=== PATIENT | male | born 1985 | race Caucasian/White ===

== ENCOUNTER 2016-05-20 08:02 | Emergency (ER) | payer BC, OTHER ==
[2016-05-20 08:15] VITALS: BP 185/125
--- NOTE | 2016-05-20 08:47 | UC ---
Mercedez Booker Janilya, scribed for [facility] MD on 05/20/16 at 0830 . Throat Pain/Nasal Oskar HPI - HPI Summary HPI Summary: Nurse's note: Sore throat, sinus pressure for about a week, states worse at night. BP 185/125; pt states he did not take lisinopril yet this AM; is under a lot of stress, his brother this week. note: Billy Peña's vital signs are stable. Pt has elevated blood pressure 185/125. He needs to take his Lisinopril. 10/23 discomfort. Pulse is 99. Everyday smoker. PMHx significant HTN, DM. Pt is on Amlodipine and Metform. Chart review shows number of visits for sore throat. Pt was treated in March for sinusitis. Note is made of an ER visit on 04/01/2016. Pt had elevated BP, but refused to stay in hospital even though he had chest discomfort. HPI: A 31 y/o male came in to [facility] presenting w/ a gradual onset of constant sore throat for approximately 3 days. It hurts to swallow. Pt reports sinus pain. Pt states his ears are plugged. Pt denies SOB, n/v/d. Pt is allergic to Amoxicillin. - History of Current Complaint Chief Complaint: UC Stated Complaint: SORE THROAT SINUS ISSUE Hx Obtained From: Patient Onset/Duration: Gradual Onset, Lasting Days, Still Present Severity: Moderate - Allergies/Home Medications Allergies/Adverse Reactions: Allergies Allergy/AdvReac Type Severity Reaction Status Date / Time Amoxicillin [From Augmentin] Allergy Intermediate YEAST Verified 05/20/16 08:08 INFECTION Clavulanic Acid Allergy Intermediate YEAST Verified 05/20/16 08:08 [From Augmentin] INFECTION PMH/Surg Hx/FS Hx/Imm Hx Previously Healthy: Yes Endocrine History Of: Reports: Diabetes Denies: Thyroid Disease Cardiovascular History Of: Reports: Hypertension Denies: Cardiac Disorders Respiratory History Of: Denies: COPD, Asthma GI/ History Of: Denies: Ulcer - Surgical History Surgical History: None - Family History Known Family History: Positive: Cardiac Disease - CHF, multiple [place]'s - father ( age 73), Hypertension - father, mother, Diabetes - father, Other - positive [facility] for URI - Social History Occupation: Employed Full-time - [place] Alcohol Use: Rare Substance Use Type: None Smoking Status (MU): Heavy Every Day Tobacco Smoker Type: Cigarettes Amount Used/How Often: 1/2 ppd Length of Time of Smoking/Using Tobacco: 18 years Have You Smoked in the Last Year: Yes Household Exposure Type: Cigarettes - Immunization History Most Recent Influenza Vaccination: none Review of Systems Constitutional: Negative Skin: Negative Eyes: Negative ENT: Sore Throat, Other - Sinus pain, ears plugged Respiratory: Negative Cardiovascular: Negative Gastrointestinal: Negative Genitourinary: Negative Motor: Negative Neurovascular: Negative Musculoskeletal: Negative Neurological: Negative Psychological: Negative All Other Systems Reviewed And Are Negative: Yes Physical Exam Triage Information Reviewed: Yes Appearance: Well-Appearing, No Pain Distress, Well-Nourished Vital Signs: Initial Vital Signs Temp 97.6 F 05/20/16 08:09 Pulse 80 05/20/16 08:09 Resp 16 05/20/16 08:09 BP 185/125 05/20/16 08:09 Pulse Ox 99 05/20/16 08:09 Vital Signs Reviewed: Yes Eyes: Positive: Conjunctiva Clear ENT: Positive: Hearing grossly normal, Pharynx normal, TMs normal, Other: - TENDER TO PALPATION OVER BOTH MAXILLARY SINUSES. Negative: Muffled/hoarse voice Neck: Positive: Supple, Nontender Respiratory: Positive: Chest non-tender, Lungs clear, Normal breath sounds, No respiratory distress Cardiovascular: Positive: RRR, No Murmur Abdomen Description: Positive: Nontender, No Organomegaly, Soft Bowel Sounds: Positive: Present Musculoskeletal: Positive: Strength Intact Neurological: Positive: Alert Psychological: Positive: Age Appropriate Behavior Skin: Negative: rashes Throat Pain/Nasal Course/Dx - Course Course Of Treatment: Considered sinusitis vs URI. Diagnosis is maxillar sinusitis, bilateral. - Differential Dx/Diagnosis Differential Diagnosis/HQI/PQRI: Sinusitis, URI Provider Diagnoses: Maxillar sinusitis, bilateral Discharge - Discharge Plan Condition: Stable Disposition: HOME Prescriptions: Sulfamethox/Trimethoprim DS* [Bactrim DS 800/160 TAB*] 1 tab PO BID #20 tab Patient Education Materials: Sinusitis (ED) Referrals: Anny Calderón NP [Primary Care Provider] - Additional Instructions: WE DISCUSSED: You have sinusitis. begin Bactrim antibiotic for 10 days; one pill, twice a day. Smoke as little as possible. See instructions below to help with sinus discomfort. COUGH, CONGESTION of CHEST, SINUSES OR EARS: The most important goal is to liquefy all the phlegm and get it out of your head and chest. Any illness causing cough, congestion, sore throat or sinus discomfort can be helped by doing the following: STAND UNDER SHOWER STREAM TO LOOSEN SECRETIONS. STAY AWAY FROM ANY SMOKE OR IRRITANTS. WHAT ELSE CAN HELP RELIEVE YOUR SYMPTOMS: GENERAL TYPES OF MEDICINE THAT MAY HELP DECONGESTANTS: helps relieve stuffiness and clears sinuses. Pseudoephedrine ( Sudafed or generic) is effective but you need to ask the pharmacist for it because it may be kept behind the counter. ANTIHISTAMINES: are NOT helpful in many colds and flus because they can worsen sore throat, dry eyes and mouth and cause drowsiness. Examples are diphenhydramine, doxylamine and chlorpheniramine. They can help dry you out if you are having profuse, clear drainage from the nose. EXPECTORANTS: helps thin mucous in the nose and chest, making it easier to clear the fluid out. Expectorants are in most combination cough/cold remedies and should be taken with plenty of water. Guaifenesin is the most common expectorant and it comes in pill or liquid form. Mucinex is an extended release form of guaifenesin. COUGH SUPPRESANT: reduces the body's cough reflex. Dextromethorphan is in over the counter products, but sometimes narcotics such as codeine or hydrocodone are used to suppress cough. SPECIFIC MEDICATIONS: The most important goal is to liquefy all the phlegm and get it out of your head and chest: The following medicines (in prescription form or you can buy them without prescription) may help: To help with cough: DEXTROMETHORPHAN (Vicks, Robitussin, Nyquil and other brands) To help break up phlegm: GUAIFENESIN (Mucinex, Robitussin, other brands) To help clear congestion: PSEUDOEPHEDRINE (Sudafed, Dimetapp, other brands) TRY TO CLEAR NOSE: AFRIN NASAL SPRAY: 2-3 SPRAYS PER NOSTRIL, TWICE A DAY FOR TWO DAYS ONLY. USEFUL WAYS TO FEEL BETTER WITHOUT MEDICATIONS: STAND UNDER SHOWER STREAM TO LOOSEN SECRETIONS. USE A VAPORIZOR. STAY AWAY FROM ANY SMOKE OR IRRITANTS. USE SALINE NASAL SPRAY TO KEEP FLOW OF MUCOUS FROM NOSTRILS AND SINUSES. CONSIDER USING NETI POT TO HELP WITH ALLERGIES AND CONGESTION IN THE NOSE. USE THIS THREE TIMES A WEEK. YOU CAN GET THIS AT [facility] IN [place] OR VARIOUS DRUGSTORES. DRINK LOTS OF WARM FLUIDS USEFUL HOME REMEDIES: WARM WATER GARGLES, WITH TSP OF SALT PER 8 OUNCES OF WATER, GARGLE FOR A FEW SECONDS AND SPIT OUT; GARGLE AND SPIT OUT; EVERY THREE HOURS. AND/OR: WARM WATER OR TEA, HONEY AND LEMON; 2-3 CUPS A DAY. FOR SORE THROAT: KEEP THROAT MOIST WITH LOZENGES; TEA AND HONEY. USE WARM WATER GARGLES 3-4 TIMES A DAY. FOLLOW UP: RE-CHECK IN 1O DAYS, NEEDED, IF YOU ARE NOT IMPROVING. RETURN HERE OR SEE YOUR PHYSICIAN. RE-CHECK SOONER IF INCREASED PAIN OR TEMPERATURE. The documentation as recorded by the Mercedez peguero Janilya accurately reflects the service I personally performed and the decisions made by , Richard Chase MD.
== END 2016-05-20 08:52 | disposition home or self-care (01) ==
LOC: UCEAST 08:02
DX: J32.0 Chronic maxillary sinusitis (principal); Z88.0 Allergy status to penicillin; F17.210 Nicotine dependence, cigarettes, uncomplicated
CPT/HCPCS: 87651; 99212; G0463

== ENCOUNTER 2016-06-09 07:25 | Emergency (ER) | payer OTHER ==
[2016-06-09 07:32] VITALS: BP 183/117
[2016-06-09] MEDS ORDERED: Ketorolac INJ* 60 MG/2 ML VIAL IM ONE (07:49)
[2016-06-09] MEDS ORDERED: Lidocaine PATCH 5%* 1 PATCH TRANSDERM ONE (07:49)
--- NOTE | 2016-06-09 08:32 | ED ---
Jeovany Booker Matthew, scribed for Nicola Bergman MD on 06/09/16 at 0754 . Back Pain - HPI Summary HPI Summary: A 31 y/o male presents to the ED with lower back pain since yesterday afternoon. The pain is rated 9/10 in severity and radiates into the left leg. Associated symptoms include left leg numbness. The patient denies urinary incontinences, difficulty ambulating, and trauma. He's unsure how he may have injured his back. The patient states that his right hip sits higher than his left and he has been seeing a chiropractor to correct the imbalance. He works as a cook. The patient took 600mg of ibuprofen without relief. PMHx includes HTN and Diabetes. - History of Current Complaint Chief Complaint: EDBackInjuryPain Stated Complaint: LOWER BACK PAIN Time Seen by Provider: 06/09/16 07:39 Hx Obtained From: Patient Onset/Duration: Gradual Onset, Lasting Days, Still Present Onset/Duration: Started Days Ago, Atraumatic, Still Present Timing: Constant Back Pain Location: Is Discrete @ - lower back, Radiates To - down the left leg Severity Initially: Moderate Severity Currently: Moderate Pain Intensity: 9 Pain Scale Used: 0-10 Numeric Aggravating Symptom(s): Movement Associated Signs And Symptoms: Positive: Numbness - left leg. Negative: Weakness, Bladder Incontinence, Bowel Incontinence - Allergies/Home Medications Allergies/Adverse Reactions: Allergies Allergy/AdvReac Type Severity Reaction Status Date / Time Amoxicillin [From Augmentin] Allergy Intermediate YEAST Verified 06/09/16 07:28 INFECTION Clavulanic Acid Allergy Intermediate YEAST Verified 06/09/16 07:28 [From Augmentin] INFECTION Home Medications: Home Medications Fluconazole 100 MG TAB* [Diflucan 100 MG TAB*] 06/09/16 [History] PMH/Surg Hx/FS Hx/Imm Hx Endocrine/Hematology History: Reports: Hx Diabetes Denies: Hx Thyroid Disease Cardiovascular History: Reports: Hx Hypertension Respiratory History: Denies: Hx Asthma, Hx Chronic Obstructive Pulmonary Disease (COPD) GI History: Denies: Hx Ulcer Sensory History: Denies: Hx Contacts or Glasses Opthamlomology History: Denies: Hx Contacts or Glasses Infectious Disease History: Denies: Hx Clostridium Difficile, Hx Hepatitis, Hx Human Immunodeficiency Virus (HIV), Hx of Known/Suspected MRSA, Hx Shingles, Hx Tuberculosis, Hx Known/ Suspected VRE, Hx Known/Suspected VRSA, History Other Infectious Disease, Traveled Outside the [place] in Last 30 Days - Family History Known Family History: Positive: Cardiac Disease - CHF, multiple [place]'s - father ( age 73), Hypertension - father, mother, Diabetes - father, Other - positive [facility] for URI - Social History Alcohol Use: Rare Substance Use Type: Reports: None Smoking Status (MU): Heavy Every Day Tobacco Smoker Type: Cigarettes Amount Used/How Often: 1/2 ppd Length of Time of Smoking/Using Tobacco: 18 years Have You Smoked in the Last Year: Yes Review of Systems Constitutional: Negative Negative: Fever, Chills Eyes: Negative Negative: Erythema ENT: Negative Negative: Sore Throat Cardiovascular: Negative Negative: Chest Pain Respiratory: Negative Negative: Shortness Of Breath Gastrointestinal: Negative Negative: Abdominal Pain, Vomiting, Nausea Genitourinary: Negative Negative: dysuria, hematuria Positive: Myalgia - Lower Back Pain. Negative: Edema Skin: Negative Negative: Rash Positive: Numbness - Left Leg All Other Systems Reviewed And Are Negative: Yes Physical Exam Triage Information Reviewed: Yes Vital Signs On Initial Exam: Initial Vitals Temp Pulse Resp BP Pulse Ox 97.6 F 91 16 183/117 100 06/09/16 07:28 06/09/16 07:28 06/09/16 07:28 06/09/16 07:28 06/09/16 07:28 Vital Signs Reviewed: Yes Appearance: Positive: Well-Nourished Skin: Positive: Warm, Dry Head/Face: Positive: Other - Normocephalic; Atraumatic Eyes: Positive: Conjunctiva Clear Dental: Negative: Cervical Lymphadenopathy Neck: Positive: Supple, No Lymphadenopathy Respiratory/Lung Sounds: Positive: Breath Sounds Present, Other - Normal Effort. Negative: Rales, Stridor, Tracheal Deviation, Wheezes Cardiovascular: Positive: RRR, Other - Heart sounds normal; Intact distal pulses ; The pedal pulses are 2+ and symmetric. Radial pulses are 2+ and symmetric. Negative: Murmur Abdomen Description: Positive: Nontender, Soft, Other: - No rebound. Negative: Distended, Guarding Musculoskeletal: Positive: Other - straight leg raise positive on the left. Negative: Edema Left, Edema Right Neurological: Positive: Other - diminished sensation of the LLE; distal pulses intact; 5/5 strength bilaterally in the LE Diagnostics - Vital Signs Vital Signs Temp Pulse Resp BP Pulse Ox 06/09/16 07:28 97.6 F 91 16 183/117 100 - Laboratory Lab Statement: Any lab studies that have been ordered have been reviewed, and results considered in the medical decision making process. Back Pain Course/Dx - Course Assessment/Plan: A 31 y/o male presents to the ED with lower back pain since yesterday afternoon. The patient has a positive straight leg test, decreased sensation in the LLE, 2+ distal pulses, and 5/5 motor strength bilaterally. The patient will follow-up with his PCP for further management and imaging. - Diagnoses Provider Diagnoses: Sciatica Discharge - Discharge Plan Condition: Stable Disposition: HOME Prescriptions: Lidocaine PATCH 5%* [Lidoderm 5% Patch*] 1 patch TRANSDERM DAILY #14 patch Naproxen TAB* [Naprosyn TAB*] 500 mg PO Q8H PRN #30 tab PRN Reason: Pain Scale 6-10 predniSONE TAB* [Deltasone TAB*] 50 mg PO DAILY #5 tab traMADol TAB* [Ultram*] 50 mg PO Q6HR PRN #12 tab MDD 4 PRN Reason: Pain - Moderate To Severe Patient Education Materials: Naproxen (By mouth), Prednisone (By mouth), Tramadol (By mouth), Lidocaine Patch (On the skin), Sciatica (ED) Forms: *Gen. Provider Communication Referrals: Anny Calderón NP [Primary Care Provider] - 3 Days Additional Instructions: Please follow-up with your primary care physician in 3 days. The documentation as recorded by the Jeovany peguero Matthew accurately reflects the service I personally performed and the decisions made by , Nicola Bergman MD.
[2016-06-09] MEDS ORDERED: Lidocaine Patch REMOVE* 1 NOTE MISC SCH (21:00)
== END 2016-06-09 09:40 | disposition home or self-care (01) ==
LOC: ED 07:25
DX: M54.30 Sciatica, unspecified side (principal); M54.5 Low back pain; F17.210 Nicotine dependence, cigarettes, uncomplicated
CPT/HCPCS: 96372; 99281; A9270-GY; J1885

== ENCOUNTER 2017-04-03 11:18 | Emergency (ER) | payer OTHER ==
--- NOTE | 2017-04-03 14:53 | UC ---
Sam Booker Thomas, scribed for Gwen Taveras MD on 04/03/17 at 1448 . Back Pain HPI - HPI Summary HPI Summary: The patient is a 32 year old male presenting to Urgent Care complaining of low back pain that began this morning at 09:30 when he was at work. The pain radiates to his bilateral lower extremities. The pain is described as spasms. The pain is rated 8/10. The pain is aggravated by movement and positional change. The patient has treated the pain with Aleve x2 today at 10:30. He speculates he may have twisted his back at work. The patient has dealt with episodes of low back pain in the past. Patient denies extremity numbness/ tingling, bladder or bowel incontinence, N/V/D, penile/testicular pain, and urinary symptoms. Patients medication reviewed this visit. - History of Current Complaint Chief Complaint: UCBackPain Stated Complaint: BACK PAIN Time Seen by Provider: 04/03/17 14:42 Hx Obtained From: Patient Onset/Duration: Lasting Hours - onset 09:30, Still Present Timing: Constant Severity Currently: Moderate Pain Intensity: 8 Pain Scale Used: 0-10 Numeric Back Pain: Is Discrete @ - lower back Character: Spasmodic Aggravating Factor(s): Movement, Other - Position change Alleviating Factor(s): Nothing Associated Signs And Symptoms: Negative: Fever, Numbness, Tingling, Bladder Incontinence, Bowel Incontinence - Allergies/Home Medications Allergies/Adverse Reactions: Allergies Allergy/AdvReac Type Severity Reaction Status Date / Time Amoxicillin [From Augmentin] Allergy Intermediate YEAST Verified 04/03/17 12:15 INFECTION Clavulanic Acid Allergy Intermediate YEAST Verified 04/03/17 12:15 [From Augmentin] INFECTION Home Medications: Home Medications Jardiance 04/03/17 [History] PMH/Surg Hx/FS Hx/Imm Hx Previously Healthy: No Endocrine History: Diabetes Cardiovascular History: Hypertension - Surgical History Surgical History: None - Family History Known Family History: Positive: Cardiac Disease - CHF, multiple [place]'s - father ( age 73), Hypertension - father, mother, Diabetes - father, Other - positive [facility] for URI - Social History Occupation: Employed Full-time Alcohol Use: Rare Substance Use Type: None Smoking Status (MU): Heavy Every Day Tobacco Smoker Type: Cigarettes Amount Used/How Often: 1/2 ppd Length of Time of Smoking/Using Tobacco: 18 years Have You Smoked in the Last Year: Yes Household Exposure Type: Cigarettes - Immunization History Most Recent Influenza Vaccination: none Review of Systems Constitutional: Other - NEGATIVE: fever Musculoskeletal: Other: - Low back pain Is Patient Immunocompromised?: No All Other Systems Reviewed And Are Negative: Yes Physical Exam Triage Information Reviewed: Yes Appearance: Well-Appearing, No Pain Distress, Well-Nourished Vital Signs: Initial Vital Signs Temp 98 F 04/03/17 12:12 Pulse 86 04/03/17 12:12 Resp 16 04/03/17 12:12 BP 163/101 04/03/17 12:12 Pulse Ox 100 04/03/17 12:12 Eye Exam: Normal Eyes: Positive: Conjunctiva Clear ENT Exam: Normal Dental Exam: Normal Neck exam: Normal Neck: Positive: Supple, Nontender Respiratory Exam: Normal Respiratory: Positive: Chest non-tender, Lungs clear, Normal breath sounds, No respiratory distress, No accessory muscle use Cardiovascular Exam: Normal Cardiovascular: Positive: RRR, No Murmur, Pulses Normal Abdominal Exam: Normal Abdomen Description: Positive: Nontender, No Organomegaly, Soft Musculoskeletal: Positive: Other: - ambulatory without difficult no pain spinous process c/t/l/s + paraspinal discomfort R>L lumbar + SLE b/l + flex/ext knee, ankle + abduct, adduct hips Neurological Exam: Normal Neurological: Positive: Other: - 2+ patellar, achilles b/l Psychological Exam: Normal Skin Exam: Normal Diagnostics - Radiology L-Spine XR Xray Interpretation: No Acute Changes - MILD DEGENERATIVE DISC DISEASE AND OSTEOARTHRITIS. Dr. Taveras has reviewed this report. Radiology Interpretation Completed By: Radiologist Back Pain Course/Dx - Course Course Of Treatment: The patient presents with low back pain. pt with pain paraspinal lumabar muscls. distal CSM intact. t. L-Spine XR shows MILD DEGENERATIVE DISC DISEASE AND OSTEOARTHRITIS. motrin/apap. heat. flexeril. work note. return precautions. Blood pressure noted and patient informed of follow up with PCP. - Differential Dx/Diagnosis Provider Diagnoses: muscle spasm paraspinal lumbar Discharge - Discharge Plan Condition: Stable Disposition: HOME Prescriptions: Cyclobenzaprine HCl [Flexeril 5 mg (NF)] 5 mg PO Q8HR #15 tab MDD 3 traMADol TAB* [Ultram*] 50 mg PO Q12H PRN #10 tab MDD 2 PRN Reason: back pain Patient Education Materials: Acute Low Back Pain (ED) Forms: *Gen. Provider Communication Referrals: Damien Jerez MD [Primary Care Provider] - Additional Instructions: - Okay to alternate ibuprofen (Advil, Motrin) 600mg and Tylenol every 3hours as needed for pain. Take with food. Do NOT take for more than 4-5 days. Take Tramadol and Felxeril as prescribed. Do NOT drive, operate machinery or drink alcohol while taking these medications. This medication may cause constipation - use a stool softner as needed -Apply moist heat to your back for 20 minutes at a time, 4-5 times a day. Once your muscles are warm, slow gentle stretching exercises are important -Contact your doctor today to arrange a follow-up appointment next week. -If you pain is uncontrolled - go to an emergency department for further treatment The documentation as recorded by the Sam peguero Thomas accurately reflects the service I personally performed and the decisions made by me, Gwen Taveras MD.
[2017-04-03] MEDS: Acetaminophen TAB* 325 MG PO ONE (14:56)
[2017-04-03 14:58] VITALS: BP 153/95
--- NOTE | 2017-04-03 15:38 | RAD ---
HISTORY: Lumbar pain COMPARISONS: None VIEWS: 5 , Frontal, lateral, coned-down lateral sacral, and bilateral oblique views of the lumbar spine. FINDINGS: ALIGNMENT: The alignment is normal. VERTEBRAL BODIES: The vertebral body heights are normal. The interpedicular distances are normal. Several Schmorl's nodes are noted. JOINTS: There is mild facet osteoarthritic change at L4-L5 and L5-S1 INTERVERTEBRAL DISCS: There is mild diffuse loss of intervertebral disc height. SOFT TISSUE: Unremarkable. OTHER: The pelvis is unremarkable. The lung bases are clear. IMPRESSION: MILD DEGENERATIVE DISC DISEASE AND OSTEOARTHRITIS
== END 2017-04-03 16:20 | disposition home or self-care (01) ==
LOC: UCEAST 11:18
DX: M62.830 Muscle spasm of back (principal); M54.5 Low back pain; M51.37 Other intervertebral disc degeneration, lumbosacral region; M47.817 Spondylosis without myelopathy or radiculopathy, lumbosacral region; E11.9 Type 2 diabetes mellitus without complications; I10 Essential (primary) hypertension; Z88.1 Allergy status to other antibiotic agents; F17.210 Nicotine dependence, cigarettes, uncomplicated
CPT/HCPCS: 72110; 99212; A9270-GY; G0463

== ENCOUNTER 2017-09-10 11:18 | Emergency (ER) | payer BC, OTHER ==
[2017-09-10 11:57] VITALS: BP 118/61
--- NOTE | 2017-09-10 12:20 | UC ---
Hand/Wrist HPI - HPI Summary HPI Summary: pt is c/o pain and swelling to his R wrist for a month. denies hx of injury but uses wrist often for work. no numb or weakness. - History Of Current Complaint Chief Complaint: UCUpperExtremity Stated Complaint: RIGHT WRIST Time Seen by Provider: 09/10/17 12:12 Hx Obtained From: Patient Onset/Duration: Gradual Onset Pain Intensity: 6 Aggravating Factor(s): Movement Alleviating Factor(s): Nothing - Allergies/Home Medications Allergies/Adverse Reactions: Allergies Allergy/AdvReac Type Severity Reaction Status Date / Time amoxicillin [From Augmentin] Allergy Unknown YEAST Verified 09/10/17 11:46 INFECTION bee venom protein (honey bee) Allergy Unknown Unknown Verified 09/10/17 11:46 Reaction Details clavulanic acid Allergy Unknown YEAST Verified 09/10/17 11:46 [From Augmentin] INFECTION Home Medications: Home Medications Alogliptin Benzoate [Alogliptin] 6.25 mg PO DAILY 09/10/17 [History Confirmed ] Empagliflozin [Jardiance] 10 mg PO DAILY 09/10/17 [History Confirmed 09/10/17] metFORMIN* [Glucophage 500 MG TAB *] 500 mg PO DAILY 09/10/17 [History Confirmed 09/10/17] PMH/Surg Hx/FS Hx/Imm Hx Endocrine History: Diabetes Cardiovascular History: Hypertension - Surgical History Surgical History: None - Family History Known Family History: Positive: Cardiac Disease - CHF, multiple [place]'s - father ( age 73), Hypertension - father, mother, Diabetes - father, Other - positive [facility] for URI - Social History Occupation: Employed Full-time Lives: With Family Alcohol Use: Rare Substance Use Type: None Smoking Status (MU): Heavy Every Day Tobacco Smoker Type: Cigarettes Amount Used/How Often: 1/2 ppd Length of Time of Smoking/Using Tobacco: 18 years Have You Smoked in the Last Year: Yes Household Exposure Type: Cigarettes - Immunization History Most Recent Influenza Vaccination: none Vaccination Up to Date: Yes Review of Systems Constitutional: Negative Skin: Negative Eyes: Negative ENT: Negative Respiratory: Negative Cardiovascular: Negative Gastrointestinal: Negative Genitourinary: Negative Motor: Negative Neurovascular: Negative Musculoskeletal: Other: - R volar wrist pain/swelling Neurological: Negative Psychological: Negative Is Patient Immunocompromised?: No All Other Systems Reviewed And Are Negative: Yes Physical Exam Triage Information Reviewed: Yes Appearance: Well-Appearing Vital Signs: Initial Vital Signs Temp 97.4 F 09/10/17 11:51 Pulse 75 09/10/17 11:51 Resp 18 09/10/17 11:51 BP 118/61 09/10/17 11:51 Pulse Ox 97 09/10/17 11:51 Vital Signs Reviewed: Yes Eyes: Positive: Conjunctiva Clear ENT: Positive: Normal ENT inspection Neck: Positive: Supple, Nontender, No Lymphadenopathy Respiratory: Positive: Lungs clear, Normal breath sounds Cardiovascular: Positive: RRR, No Murmur Abdomen Description: Positive: Nontender, No Organomegaly, Soft Bowel Sounds: Positive: Present Musculoskeletal: Positive: Other: - RUE: R volar wrist with mild swelling to radial side with slight tenderness compared to L. No bony deformity or tenderness. No erythema or warmth. Full s/v/m to hand. Rest of RUE is unremarkable. Neurological: Positive: Alert Psychological: Positive: Age Appropriate Behavior Skin Exam: Normal Hand/Wrist Course/Dx - Course Course Of Treatment: No concernf ro fx or dislocation thus no xray. no concern for carpal tunnel. c/w a small ganglion vs tendinitis. will splint, nsaid and ortho f/u. - Differential Dx/Diagnosis Provider Diagnoses: acute R volar wrist pain with mild swelling Discharge - Sign-Out/Discharge Documenting (check all that apply): Discharge/Admit/Transfer - Discharge Plan Condition: Stable Disposition: HOME Prescriptions: Naproxen TAB* [Naprosyn 375 mg TAB*] 375 mg PO BID #10 tab Patient Education Materials: Ganglion Cysts (ED), Tendinitis (ED) Referrals: Damien Jerez MD [Primary Care Provider] - If Needed Fahad Samuels MD [Medical Doctor] - As Soon As Possible Additional Instructions: SPLINT UNTIL CLEARED - Billing Disposition and Condition Condition: STABLE Disposition: HOME
== END 2017-09-10 12:29 | disposition home or self-care (01) ==
LOC: UCCORT 11:18
DX: M25.531 Pain in right wrist (principal); M25.431 Effusion, right wrist; Z88.0 Allergy status to penicillin; Z88.8 Allergy status to other drugs, medicaments and biological substances; Z91.030 Bee allergy status; E11.9 Type 2 diabetes mellitus without complications; Z79.84 Long term (current) use of oral hypoglycemic drugs; I10 Essential (primary) hypertension; F17.210 Nicotine dependence, cigarettes, uncomplicated
CPT/HCPCS: 99213; G0463

== ENCOUNTER 2018-02-15 18:52 | Emergency (ER) | payer BC ==
[2018-02-15 19:28] VITALS: BP 149/79
--- NOTE | 2018-02-15 19:38 | UC ---
General HPI - HPI Summary HPI Summary: PT IS C/O PAIN AND SWELLING OVER HIS INNER ANKLE AREA X 1 WEEK. DENIES HX OF INJURY AND FEVER. HX FLAT FEET BUT NO ORTHODICS. - History of Current Complaint Chief Complaint: UCLowerExtremity Stated Complaint: LEFT ANKLE PAIN Time Seen by Provider: 02/15/18 19:31 Hx Obtained From: Patient Onset/Duration: Gradual Onset Timing: Constant Pain Intensity: 8 Associated Signs & Symptoms: Negative: Fever - Allergy/Home Medications Allergies/Adverse Reactions: Allergies Allergy/AdvReac Type Severity Reaction Status Date / Time amoxicillin [From Augmentin] Allergy Unknown YEAST Verified 02/15/18 19:19 INFECTION bee venom protein (honey bee) Allergy Unknown Unknown Verified 02/15/18 19:19 Reaction Details clavulanic acid Allergy Unknown YEAST Verified 02/15/18 19:19 [From Augmentin] INFECTION Home Medications: Home Medications Atorvastatin* [Lipitor*] 10 mg PO QPM 02/15/18 [History Confirmed 02/15/18] Ibuprofen TAB* [Advil TAB*] 400 mg PO Q6H PRN 02/15/18 [History Confirmed ] PMH/Surg Hx/FS Hx/Imm Hx Endocrine History: Diabetes, Dyslipidemia Cardiovascular History: Hypertension - Surgical History Surgical History: None - Family History Known Family History: Positive: Cardiac Disease - CHF, multiple MT's - father ( age 73), Hypertension - father, mother, Diabetes - father, Other - positive FMH for URI - Social History Occupation: Employed Full-time Lives: With Family Alcohol Use: None Substance Use Type: None Smoking Status (MU): Heavy Every Day Tobacco Smoker Type: Cigarettes Amount Used/How Often: 1/2 ppd Length of Time of Smoking/Using Tobacco: 18 years Have You Smoked in the Last Year: Yes Household Exposure Type: Cigarettes - Immunization History Most Recent Influenza Vaccination: none Vaccination Up to Date: Yes Review of Systems Constitutional: Negative Skin: Negative Eyes: Negative ENT: Negative Respiratory: Negative Cardiovascular: Negative Gastrointestinal: Negative Genitourinary: Negative Motor: Negative Neurovascular: Negative Musculoskeletal: Negative Neurological: Negative Psychological: Negative All Other Systems Reviewed And Are Negative: Yes Physical Exam Triage Information Reviewed: Yes Appearance: Well-Appearing Vital Signs: Initial Vital Signs Temp 97.6 F 02/15/18 19:22 Pulse 82 11/02/18 19:22 Resp 20 02/15/18 19:22 BP 149/79 02/15/18 19:22 Pulse Ox 97 02/15/18 19:22 Vital Signs Reviewed: Yes Eyes: Positive: Conjunctiva Clear ENT: Positive: Normal ENT inspection Neck: Positive: Supple, Nontender, No Lymphadenopathy Respiratory: Positive: Lungs clear, Normal breath sounds Cardiovascular: Positive: RRR, No Murmur Abdomen Description: Positive: Nontender, No Organomegaly, Soft Bowel Sounds: Positive: Present Musculoskeletal: Positive: Other: - BLE'S: FLAT FEET L>R WITH A VALGUS DEFORMITY TO THE LEFT. MEDIAL L FOOT/ANKLE WITH MILD SWELLING AND TENDERNESS BUT NO ERYTHEMA OR WARMTH. GROSS S/V/M IS INTACT TO BOTH FEET. REST OF BLE'S ARE UNREMARKABLE. Neurological: Positive: Alert Psychological: Positive: Age Appropriate Behavior Skin Exam: Normal Course/Dx - Course Course Of Treatment: MIGUEL APPLIED BY MYSELF TO L ARCH AND ANKLE. PT NOTED SOME RELIEF FROM DISCOMFORT AFTER. FOOT HAD FULL S/V/M FUNCTION POST MIGUEL APPLICATION. - Differential Dx - Multi-Symptom Provider Diagnoses: FLAT FEET WITH L MEDIAL ANKLE AND FOOT STRAIN. Discharge - Sign-Out/Discharge Documenting (check all that apply): Patient Departure All imaging exams completed and their final reports reviewed: No Studies - Discharge Plan Condition: Stable Disposition: HOME Patient Education Materials: Flatfoot (DC) Referrals: Kayla Adhikari DPM [Doctor of Podiatric Medicine] - As Soon As Possible Additional Instructions: consider an over the counter arch support and wear shoes with good arch support - Billing Disposition and Condition Condition: STABLE Disposition: Home
== END 2018-02-15 19:50 | disposition home or self-care (01) ==
LOC: UCCORT 18:52
DX: S96.912A Strain of unspecified muscle and tendon at ankle and foot level, left foot, initial encounter (principal); M21.42 Flat foot [pes planus] (acquired), left foot; E11.9 Type 2 diabetes mellitus without complications; E78.5 Hyperlipidemia, unspecified; I11.0 Hypertensive heart disease with heart failure; I50.9 Heart failure, unspecified; F17.210 Nicotine dependence, cigarettes, uncomplicated; Z88.0 Allergy status to penicillin; Z91.030 Bee allergy status; Z79.899 Other long term (current) drug therapy; X58.XXXA Exposure to other specified factors, initial encounter; Y92.9 Unspecified place or not applicable
CPT/HCPCS: 99211; G0463